=== PATIENT | male | born 1965 | race Two or more races ===

== ENCOUNTER 2017-04-01 14:11 | Emergency (ER) | payer MEDICAID ==
--- NOTE | 2017-04-01 14:26 | EDPHY ---
H & P Time Seen by Provider: 04/01/17 14:14 HPI/ROS: CHIEF COMPLAINT: Right foot pain HISTORY OF PRESENT ILLNESS: Patient is a 52-year-old male status post MRI say, osteomyelitis, hepatitis-C and diabetes who presents emergency department with right foot pain. On February 252016 the patient had an amputation of his right 2nd toe due to MRI say and osteomyelitis. Patient was ultimately discharged home and had his sutures removed a week and half ago by his primary care physician. At that time the wound appeared to be healing well. Patient is concerned because he has had mild increased pain at that location. There is new discoloration and darkening of the skin near the amputation site. Patient has been running "a low-grade fever." Patient has mild swelling of his right foot.. REVIEW OF SYSTEMS: My complete review of systems is negative except as mentioned in the HPI. Past Medical/Surgical History: Includes hepatitis-C, MRI say, osteomyelitis, hypertension, high cholesterol, diabetes Past surgical history: Includes right 2nd toe amputation Social history: Occasionally smoke. Smoking Status: Former smoker Physical Exam: Vitals noted. Afebrile GENERAL: No acute distress, alert. HEENT: Eyes normal to inspection, normal pharynx, no signs of dehydration. NECK: No thyromegaly, no lymphadenopathy, supple. RESPIRATORY: Clear to auscultation bilaterally, no rales, rhonchi or wheezing. CVS: Regular rate and rhythm, no rubs, murmurs, or gallops. ABDOMEN: Soft, nontender, nondistended, no organomegaly. BACK: Normal to inspection, no CVA tenderness. SKIN: Normal color, no rash, warm, dry. No pallor. Multiple tattoos. EXTREMITIES: Minimal right foot edema. No redness or warmth. Darkening of the skin at the base of the 2nd toe (amputated). No open wound. No streaking up foot or ankle. No calf tenderness, no Homans sign or cords, no joint swelling. NEURO/PSYCH: Alert and oriented, normal mood and affect, normal motor sensory exam. Constitutional: Initial Vital Signs Temperature (C) 36.7 C 04/01/17 14:23 Heart Rate 95 04/01/17 14:23 Respiratory Rate 18 04/01/17 14:23 Blood Pressure 136/103 H 04/01/17 14:23 O2 Sat (%) 98 04/01/17 14:23 O2 Delivery Mode Room Air Allergies/Adverse Reactions: No Known Allergies Allergy (Verified 04/01/17 14:28) Home Medications: Medication Instructions Recorded Amitriptyline HCl 04/01/17 Doxycycline Hyclate 100 mg PO BID #14 capsule 04/01/17 Gabapentin 04/01/17 Harvoni 90-400 mg Tablet 04/01/17 Marinol 04/01/17 Myfortic 04/01/17 Oxycodone HCl 04/01/17 Prednisone 04/01/17 Prograf 04/01/17 Ribavirin 04/01/17 Medical Decision Making ED Course/Re-evaluation: In the emergency department I discussed possible etiologies with the patient. I answered all his questions. I paged Infectious Disease. I discussed case with Infectious Disease. He recommended patient be started on doxycycline 100 mg twice daily x7 days. He recommend the patient follow up with his physicians at [place]. He did not feel the patient needs imaging or laboratory studies at this time. I discussed this with the patient. They contacted their transplant team and determine the doxycycline was acceptable with his other medications. Patient was given warnings prior to leaving. He will return with worsening symptoms. Differential Diagnosis: My differential includes but is not limited to cellulitis, abscess, wound infection,MRSA, osteomyelitis Departure - Departure Disposition: Home, Routine, Self-Care Clinical Impression: Discoloration of skin of foot Condition: Good Instructions: Acute Rash (ED) Additional Instructions: You need close follow-up with your transplant physician and the team at [facility] that treated for osteomyelitis. Our Infectious Disease physician recommended you take doxycycline 100 mg twice daily x7 days. Return with increasing redness, pain, swelling or any other concerns. Referrals: KESHA BELCHER [Primary Care Provider] - 2-3 days, call for appt. Prescriptions: Doxycycline Hyclate 100 mg PO BID #14 capsule
[2017-04-01 14:28] VITALS: BP 136/103; PULSE 95; RESP 18; TEMP 98.1; O2SAT 98
== END 2017-04-01 14:57 | disposition home or self-care (01) ==
LOC: CED 14:11
DX: L81.9 Disorder of pigmentation, unspecified (principal); I10 Essential (primary) hypertension; E11.9 Type 2 diabetes mellitus without complications; Z87.891 Personal history of nicotine dependence